=== PATIENT | male | born 1980 | race Caucasian/White ===

== ENCOUNTER 2021-04-13 11:20 | Emergency (ER) | payer OTHER ==
[~2021-04-13] VITALS: Ht 175.3 cm; Wt 77.1 kg
[2021-04-13 11:26] VITALS: BP 119/66
--- NOTE | 2021-04-13 11:34 | NUR ---
PT SENT TO LOBBY
[2021-04-13] MEDS ORDERED: IBUPROFEN 400 MG TAB PO ONE (11:55)
--- NOTE | 2021-04-13 12:00 | NUR ---
40/M C/O RIGHT ANKLE PAIN AFTER PLAYING SOCCER YESTERDAY, STATES HE KICKED THE BALL WRONG. REPORTS USING [employer] [facility]OT LAST NIGHT WITH NO RELIEF. STATES 8/10 THROBBING PAIN THAT WORSENS WITH MOVEMENT. MEDHX: DENIES ALLERGIES: DENIES
--- NOTE | 2021-04-13 12:46 | NUR ---
applied short leg posterior without any issues
[2021-04-13] MEDS ORDERED: NAPR-1704 PO (12:47)
--- NOTE | 2021-04-13 12:55 | NUR ---
Patient discharged with v/s stable. Written and verbal after care instructions ABOUT FOOT SPRAIN given and explained. Patient alert, oriented and verbalized understanding of instructions. Ambulatory with STEADY GAIT WITH CRUTCHES. All questions addressed prior to discharge. ID band removed. Patient advised to follow up with PMD. Rx of NAPROXEN given. Patient educated on indication of medication including possible reaction and side effects. Opportunity to ask questions provided and answered.
== END 2021-04-13 12:55 | disposition home or self-care (01) ==
LOC: MED 11:20
DX: S93.601A Unspecified sprain of right foot, initial encounter (principal); X50.0XXA Overexertion from strenuous movement or load, initial encounter; Y93.66 Activity, soccer; Y92.89 Other specified places as the place of occurrence of the external cause; Y99.8 Other external cause status
CPT/HCPCS: 29515; 73630; 99283